=== PATIENT | female | born 2000 | race Caucasian/White ===

== ENCOUNTER 2025-02-07 09:29 | Emergency (ER) | payer OTHER ==
[~2025-02-07] VITALS: Ht 170.2 cm; Wt 50.0 kg
[2025-02-07 09:38] VITALS: O2SAT 100
[2025-02-07 09:41] VITALS: BP 112/67; PULSE 84; RESP 18; TEMP 36.9; O2SAT 100
== END 2025-02-07 10:25 | disposition home or self-care (01) ==
LOC: ER 09:29
DX: J06.9 Acute upper respiratory infection, unspecified (principal)
CPT/HCPCS: 99282